=== PATIENT | female | born 1985 | race Caucasian/White ===

== ENCOUNTER 2017-01-14 18:36 | Inpatient (IN) | payer MEDICAID ==
[~2017-01-14] VITALS: Ht 157.5 cm; Wt 86.2 kg
[2017-01-14 18:53] VITALS: Ht 157.5 cm; Wt 86.2 kg
[2017-01-14 18:54] VITALS: BP 121/75; PULSE 88; RESP 18
[2017-01-14] MEDS ORDERED: LACTATED RINGER'S 1,000 ML IV SCH (18:58)
[2017-01-14] MEDS ORDERED: PREN1TAB79 PO (18:58)
[2017-01-14] MEDS ORDERED: OXYTOCIN 30 UNITS/LR 500 ML IV SCH ×2 (19:00)
[2017-01-14] MEDS ORDERED: LACTATED RINGER'S 1,000 ML IV PRN (19:00)
[2017-01-14] MEDS ORDERED: MISOPROSTOL 200 MCG TAB PR PRN (19:00)
[2017-01-14] MEDS ORDERED: BUTORPHANOL 2 MG INJ IV PRN ×2 (19:00)
[2017-01-14] MEDS ORDERED: HYDROCODONE/APAP (5/325) TAB PO PRN (19:00)
[2017-01-14] MEDS ORDERED: CARBOPROST 250 MCG INJ IM PRN (19:00)
[2017-01-14] MEDS ORDERED: LIDOCAINE 1% (MPF) 30 ML INJ INJ PRN (19:00)
[2017-01-14] MEDS ORDERED: METHYLERGONOVINE 0.2 MG INJ IM PRN (19:00)
[2017-01-14] MEDS ORDERED: AMPICILLIN 2 GM/NS (PMX) 100 ML IV ONE (19:00)
[2017-01-14] MEDS ORDERED: IBUPROFEN 600 MG TAB PO PRN (19:00)
[2017-01-14] MEDS ORDERED: OXYTOCIN 30 UNITS/LR 500 ML IV PRN (19:00)
--- NOTE | 2017-01-14 19:12 | TRIAGE ---
OB Triage Datetime Report Generated by CPN: 01/14/2017 19:12 Datetime: 01/14/2017 18:48 Vaginal Exam Dilatation (cms): 4.0 Effacement (%): 80 Station: -2 Exam By: BELA Vaginal Bleeding: Normal Show Cervix, Consistency: Soft Cervix, Position: Midposition Presentation 'A': Cephalic Datetime: 01/14/2017 18:47 Time of Arrival: 01/14/2017 19:05 EGA: 40.6 Arrived By: Wheelchair Datetime: 01/14/2017 18:45 Time of Arrival: 01/14/2017 18:33 Arrived By: Ambulatory Arrived From: Home Chief Complaint: PT PRESENTS TO TRIAGE COMPLAINING OF CONTRACTIONS SINCE THIS MORNING GETTING WORS E THISE EVENING Movement: Present Contractions: Regular Time Contractions Began: 01/14/2017 06:00 Contractions: Q10 Rupture of Membranes: Denies Vaginal Bleeding: None Vaginal Discharge: Denies Recent Sexual Intercouse: Denies Abdominal Trauma: Not Applicable Patient Complaints: Contractions Time Provider Notified: 01/14/2017 18:50 Provider Notified: FREDDY Initial Plan: EFM/SVE Datetime: 01/14/2017 18:44 Pain Assessment Pain Scale: 7 Pain Presence: Intermittent Pain Type: Contraction Pain Location: Abdomen; Back Pain Relief Measures: Comfort Measures
--- NOTE | 2017-01-14 19:17 | HP ---
Date/Time of Note Date/Time of Note DATE: 01/14/17 TIME: 19:14 OB - History Hx of Present Free Text/Dictation Pt is a 31yo at 40+6 presenting with progressively worsening uterine contractions since 0600. Pt reports FM has decreased somewhat since contractions began. Denies LOF or VB. States has been uncomplicated. Has hx of x2 Estimated Due Date: Jan 08, 2017 : 3 Para: 2 Care: Good Care Ultrasounds: Normal mid trimester US Obstetrical Complications: None Medical Complications: None Past Family/Social History * Past Medical, Surgical, Family and Obstetric Histories reviewed from chart. Blood Type: A+ Rubella: immune RPR/VDRL: Negative GBS Status: Unknown HBsAG: Negative OB Admission Exam Vital Signs Vital Signs Vital Signs Date Time Temp Pulse Resp B/P Pulse Ox O2 Delivery O2 Flow Rate FiO2 01/14/17 18:54 98.3 88 18 121/75 Room Air Physical Exam HEENT: WNL Heart: Rhythm Normal Lungs: Clear Abdomen: WNL (gravid, nontender) Extremities: Normal Cervical Dilatation: 4cm Effacement: Other (80%) Station: -2 Membranes: Intact Heart Rate: 130's Accelerations: Accelerations Present Decelerations: No Decelerations Varibility: Moderate Contractions on Admission: < 5 Minutes Apart OB Assessment/Plan Reason for admission: other (early labor) Plan: Expectant Management Other plan: FWB reassuring w/Category 1 FHT Expectantly manage labor GBS unknown, thus will follow risk-based protocol. No indication at this time for ppx Pain meds prn Anticipate JATINDER BOWMAN MD Jan 14, 2017 19:17
[2017-01-14] MEDS ORDERED: AMPICILLIN 1 GM/NS (PMX) 50 ML IV SCH (23:00)
--- NOTE | 2017-01-15 01:16 | LDN ---
Date/Time of Note Date/Time of Note DATE: 01/15/17 TIME: 01:12 Delivery Summary Pt pushed without anesthesia to an of a liveborn 3530g female infant with Apgars of 9 and 9 at 1 and 5 min respectively. Easy delivery of the head, followed by the R anterior shoulder, posterior shoulder and remainder of the body. Cry was spontaneous. The was delivered through a tight nuchal cord which was reduced following delivery of the fetus. The was placed on mother's abdomen as standard IV Pitocin was administered. After delayed cord clamping, cord was doubly clamped and cut. Cord blood collected. An intact 3VC placenta delivered shortly thereafter. Fundal massage noted firm fundus. Inspection of the vagina and perineum revealed no lacerations. EBL 200ml. Infant and mother recovering well in LDR. Weeks of Gestation 40+6 Placenta Delivered: Spontaneously Meconium: Light Episiotomy: No Anesthesia type: None Estimated blood loss: 200 Sponge & Needle done & correct: Yes All needle counts correct: Yes Any foreign bodies felt in the: No Problems: Delivery Information Sex Infant Sex: female Apgars 1 Minute: 9 5 Minute: 9 Suctioning Nose & mouth suctioned at isaías: No (suctioned following delivery on mother's abdomen) Delee suction performed: No Umbilical Cord Umbilical cord with: 3 Vessels Cord presentations: nuchal cord Nuchal cord present X: 1 Cord Blood was obtained: Yes Mother & Baby Disposition Disposition Mom & Baby to Maternity; Good: Yes Baby to NICU: No JATINDER BOWMAN MD Jan 15, 2017 01:16
[2017-01-15] MEDS ORDERED: ACETAMINOPHEN 325 MG TAB PO PRN (01:30)
[2017-01-15] MEDS ORDERED: DIBUCAINE 1% 30 GM OINT PR PRN (01:30)
[2017-01-15] MEDS ORDERED: DIPHENHYDRAMINE 50 MG INJ IV PRN (01:30)
[2017-01-15] MEDS ORDERED: ONDANSETRON 4 MG INJ IV PRN (01:30)
[2017-01-15] MEDS ORDERED: LANOLIN 7 GM TUBE TOP PRN (01:30)
[2017-01-15] MEDS ORDERED: CARBOPROST 250 MCG INJ IM PRN (01:30)
[2017-01-15] MEDS ORDERED: MISOPROSTOL 200 MCG TAB PR PRN (01:30)
[2017-01-15] MEDS ORDERED: SENNA/DOCUSATE NA (8.6MG/50MG) TAB PO PRN (01:30)
[2017-01-15] MEDS ORDERED: OXYTOCIN 30 UNITS/LR 500 ML IV PRN (01:30)
[2017-01-15] MEDS ORDERED: BENZOCAINE 20% 56 ML SPRAY TOP PRN (01:30)
[2017-01-15] MEDS ORDERED: METHYLERGONOVINE 0.2 MG INJ IM PRN (01:30)
[2017-01-15 02:50] VITALS: PULSE 60; RESP 19
[2017-01-15 04:25] VITALS: BP 94/50; PULSE 62; RESP 20
[2017-01-15] MEDS: IBUPROFEN 600 MG TAB PO SCH ×5 (05:23→23:32)
[2017-01-15] MEDS: LACTATED RINGER'S 1,000 ML IV* SCH ×2 (05:24→09:16)
[2017-01-15 07:34] VITALS: BP 94/52; PULSE 58; RESP 20
[2017-01-15 11:59] VITALS: BP 81/54; PULSE 68; RESP 20
[2017-01-15] MEDS: HYDROCODONE/APAP (5/325) TAB PO PRN (14:25)
[2017-01-15 16:08] VITALS: BP 103/59; PULSE 74; RESP 16
[2017-01-15 19:55] VITALS: BP 94/58; PULSE 62; RESP 19
[2017-01-16 04:10] VITALS: BP 101/55; PULSE 65; RESP 18
[2017-01-16] MEDS: IBUPROFEN 600 MG TAB PO SCH ×4 (05:34→23:38)
[2017-01-16 07:38] VITALS: BP 99/55; PULSE 68; RESP 20
--- NOTE | 2017-01-16 09:49 | QN ---
Documentation Comment day 1 Afebrile Vital signs stable Abdomen soft, uterus firm, lochia normal, extremity normal TIMO JOHNSON MD Jan 16, 2017 09:49
--- NOTE | 2017-01-16 09:49 | QN ---
Documentation Comment day 1 Afebrile Vital signs stable Abdomen soft, uterus firm, lochia normal, extremity normal TIMO JOHNSON MD Jan 16, 2017 09:49
--- NOTE | 2017-01-16 09:49 | QN ---
Documentation Comment day 1 Afebrile Vital signs stable Abdomen soft, uterus firm, lochia normal, extremity normal TIMO JOHNSON MD Jan 16, 2017 09:49
[2017-01-16 12:01] VITALS: BP 98/51; PULSE 68; RESP 20
[2017-01-16 16:08] VITALS: BP 90/57; PULSE 67; RESP 16
[2017-01-16 20:46] VITALS: BP 105/63; PULSE 66; RESP 20
[2017-01-17 04:30] VITALS: BP 98/58; PULSE 61; RESP 20
[2017-01-17] MEDS: IBUPROFEN 600 MG TAB PO SCH ×2 (05:18→12:23)
[2017-01-17 07:50] VITALS: BP 99/54; PULSE 71; RESP 19
[2017-01-17] MEDS ORDERED: DIPHTH/TET/ACEL PERTUSS (ADULT) 0.5 ML VIAL IM* ONE (09:00)
[2017-01-17] MEDS: HYDROCODONE/APAP (5/325) TAB PO PRN (09:31)
--- NOTE | 2017-01-17 09:51 | PD.PPDC ---
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
--- NOTE | 2017-01-17 09:51 | PD.PPDC ---
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
--- NOTE | 2017-01-17 09:51 | PD.PPDC ---
BREAD SUPERVISOR Discharge Instruction Condition Patient Condition: Good Diet Diet: Resume Regular Diet Activity/Restrictions Activity: Normal Activity May Shower Restrictions: No Exercising No Lifting No Driving No Sexual Activity Nothing in the Vagina No [place] No Tampons, douche Follow-up Follow-up with Physician: 2, Week/Weeks Return to clinic for SUPERVISOR PURIFICATION Instructions: Fever greater than 101 Chills Worsening abdominal pain Excessive Vaginal Bleeding More than 2 pads per hour Unable to tolerate diet OB Instructions: Breast Tenderness Depression Blurried Vision Headache TIMO JOHSNON MD Jan 17, 2017 09:51
--- NOTE | 2017-01-17 09:53 | DS ---
Date/Time of Note Date/Time of Note DATE: 01/17/17 TIME: 09:52 Discharge Summary Admission/Discharge Info Admit Date/Time Jan 14, 2017 at 18:50 Discharge Date/Time January 17, 2017 at 9:50 AM Discharge Diagnosis Post normal vaginal delivery day 2 Patient Condition: Good Procedures Normal spontaneous vaginal delivery Hx of Present Illness Term in labor Hospital Course Satisfactory recovery uneventful Home Meds Reported Medications Vit W-Ca,Fe,FA(<1 mg) ( Vitamins) 1 Each Tablet, 1 EACH PO DAILY, TAB 01/14/17 Follow-up Plan instruction given recommended patient to make appointment to be seen at the clinic in 2 weeks Primary Care Provider Care Physician No Primary Time spent on discharge: < 30 minutes TIMO JOHNSON MD Jan 17, 2017 09:53
== END 2017-01-17 16:15 | disposition home or self-care (01) | DRG 775 ==
LOC: OBT 18:36 → L-D 18:37 → OBT 18:50 → L-D 18:50 → PP1 01-15 02:48
PROVIDERS: ADMIT Obstetrics & Gynecology; ATTEND Obstetrics & Gynecology
PROC: 10E0XZZ Delivery of Products of Conception, External Approach (ICD-10-PCS; principal; 2017-01-15)
DX: O69.1XX0 Labor and delivery complicated by cord around neck, with compression, not applicable or unspecified (principal); Z37.0 Single live birth; Z3A.40 40 weeks gestation of pregnancy
CPT/HCPCS: 85025; 85610; 85730; 86592; 86900; 86901; 87340; 90715; G0463; J0595; J2590; J7120